=== PATIENT | male | born 1970 | race Caucasian/White ===

== ENCOUNTER 2017-04-17 06:50 | Day surgery (SDC) | payer OTHER ==
[2017-04-17] VITALS (10 sets, daily range): BP systolic 108–137; BP diastolic 59–78; PULSE 78–92; RESP 15–22; Ht 175.3 cm; Wt 67.0 kg
[~2017-04-17] VITALS: Ht 175.3 cm; Wt 67.0 kg
[~2017-04-17 06:50] MED LIST: ATROPINE 1 MG/10 ML SYRINGE IV PRN; CEFAZOLIN 2 GM/50 ML (PMX) 50 ML IVPB SCH; DIPHENHYDRAMINE 50 MG INJ IV PRN; EPHEDrine SULFATE 50 MG/5 ML SYG IV PRN; FENTAnyl 50 MCG/ML VIAL IV PRN; HYDROmorphONE (0.2 MG/ML) 10ML SYG IV PRN; LABETALOL HCL 20MG INJ IV PRN; MEPERIDINE 25 MG INJ IV PRN; MIDAZOLAM 1 MG/ML 2 ML INJ IV PRN; ONDANSETRON 4 MG INJ IV PRN; OXYCODONE/ACETAMINOPHEN (5/325) TAB PO PRN; SOD CHLORIDE 0.9% 1,000 ML IV SCH; hydrALAzine 20 MG INJ IV PRN; morphine (1 MG/ML) 10ML SYRINGE IV PRN
[2017-04-17] MEDS ORDERED: ROCURONIUM 50 MG INJ ONE (08:18)
[2017-04-17] MEDS ORDERED: MIDAZOLAM 1 MG/ML 2 ML INJ ONE (08:18)
[2017-04-17] MEDS ORDERED: GLYCOPYRROLATE 0.4 MG INJ ONE (08:18)
[2017-04-17] MEDS ORDERED: NEOSTIGMINE 3 MG/3 ML SYRINGE ONE (08:18)
[2017-04-17] MEDS ORDERED: LIDOCAINE 2% (SDV) 5 ML INJ ONE (08:18)
[2017-04-17] MEDS ORDERED: FENTAnyl 50 MCG/ML VIAL ONE (08:18)
[2017-04-17] MEDS ORDERED: PROPOFOL 20 ML ONE (08:18)
[2017-04-17] MEDS ORDERED: CEFAZOLIN 1 GM INJ ONE (08:22)
[2017-04-17] MEDS ORDERED: POLYMYXIN/BACITRACIN 1L IRRIG ONE (08:22)
[2017-04-17] MEDS ORDERED: SUCCINYLCHOLINE CHLORIDE 100 MG/5 ML SYG IV ONE (08:22)
[2017-04-17] MEDS ORDERED: BUPIVACAINE 0.25% (MPF) 30 ML INJ ONE (08:22)
[2017-04-17 08:25] LABS: BASOPHILS % 0.3 % (0.0-2.0); EOSINOPHILS # 0.2 10^3/ul (0.0-0.5); HEMATOCRIT 38.6 % (42.0-52.0); HEMOGLOBIN 12.7 g/dl (14.0-18.0); LYMPHOCYTES # 1.3 10^3/ul (0.8-2.9); LYMPHOCYTES % 36.6 % (15.0-51.0); MEAN CORPUSCULAR HEMOGLOBIN 27.3 pg (29.0-33.0); MEAN CORPUSCULAR HGB CONC 32.9 g/dl (32.0-37.0); MEAN PLATELET VOLUME 9.3 fl (7.4-10.4); MONOCYTE # 0.4 10^3/ul (0.3-0.9); MONOCYTES % 11.7 % (0.0-11.0); NEUTROPHIL # 1.7 10^3/ul (1.6-7.5); NEUTROPHILS % 46.1 % (39.0-77.0); PLATELET COUNT 192 10^3/UL (140-415); RED BLOOD COUNT 4.65 10^6/ul (4.70-6.10); RED CELL DISTRIBUTION WIDTH 13.2 % (11.5-14.5); WHITE BLOOD COUNT 3.6 10^3/ul (4.8-10.8)
[2017-04-17 08:32] LABS: INR 1.21; PARTIAL THROMBOPLASTIN TIME 29.7 Sec (25.0-35.0); PROTIME 15.4 Sec (12.2-14.2); PT RATIO 1.2
[2017-04-17 08:35] LABS: ALBUMIN 3.7 g/dl (3.3-4.9); ALBUMIN/GLOBULIN RATIO 1.12; BILIRUBIN,INDIRECT 0.1 mg/dl (0-1.1); BILIRUBIN,TOTAL 0.1 mg/dl (0.2-1.3)
[2017-04-17] MEDS ORDERED: DEXAMETHASONE 4 MG/ML 1 ML INJ ONE (08:35)
[2017-04-17] MEDS ORDERED: ONDANSETRON 4 MG INJ ONE (08:35)
[2017-04-17 08:41] LABS: HOLD TRANSMISSIONS 1
[2017-04-17 08:42] LABS: CALCIUM 9.1 mg/dl (8.4-10.2); CREATININE 0.82 mg/dl (0.61-1.24); POTASSIUM 3.9 mmol/L (3.5-5.1)
--- NOTE | 2017-04-17 09:38 | SIPON ---
Date/Time of Note Date/Time of Note DATE: 04/17/17 TIME: 09:37 Operative Report Preoperative Diagnosis right inguinal hernia Postoperative Diagnosis same Operation/Procedure Performed 1. open right inguinal hernia repair with medium ultrapro hernia system mesh 2. 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
[2017-04-17] MEDS ORDERED: HYDROCODONE/APAP (5/325) TAB PO ONE (10:00)
--- NOTE | 2017-04-17 14:04 | OPR ---
DATE OF OPERATION: 04/17/2017 INDICATION: This is a 46-year-old male with a right inguinal hernia. He requests surgical repair. Risks, alternatives, benefits, and personnel were discussed with the patient. The patient expresse d understanding and consents to the operation. PREOPERATIVE DIAGNOSIS: Right inguinal hernia. POSTOPERATIVE DIAGNOSIS: Right inguinal hernia. OPERATION PERFORMED: 1. Open right inguinal hernia repair with medium size Ultrapro hernia system mesh. 2. Therapeutic subcutaneous local anesthesia injected. SURGEON: Lily. SPECIMENS: None. COMPLICATIONS: None. ANESTHESIA: General. ESTIMATED BLOOD LOSS: Minimal. DESCRIPTION OF PROCEDURE: The patient was taken to the OR and prepped and draped in the usual steri le fashion. Surgical timeout was performed. IV antibiotics were given. Right inguinal oblique inc ision is made with a 10 blade. Dissection cautery was carried down to the external oblique fascia. External oblique fascia is opened with a 15 blade. This incision is extended medial inferiorly and lateral superiorly with Metzenbaum scissors. Cord structures were encircled with a Austin drain. Indirect hernia was identified and reduced manually. The disk portion of the UltraPro hernia syste m mesh was used to reinforce the indirect space. This was secured in place with running 0 Prolene f rom the pubic tubercle along shelving edge of the inguinal ligament. The disk was then secured to t he internal oblique with interrupted 3-0 Vicryl. Onlay mesh is secured in a similar fashion with a running 0 Prolene from the pubic tubercle along the shelving edge of the inguinal ligament. Straps are recreated and approximated around the cord structures to recreate the inguinal ring with interru pted 0 Prolene. Onlay mesh was secured to the internal oblique with interrupted 3-0 Vicryl. Slate Picker al oblique fascia was closed with running 3-0 Vicryl. Jared's fascia was closed with interrupted 3 -0 Vicryl. Skin was closed using skin toña. Therapeutic subcutaneous local anesthesia was injec darling throughout the incision site. Dressings were applied. Dictated By: KATIE VIEIRA/YARIEL Conf#: [id number] DID#: [id number]
== END 2017-04-17 11:01 | disposition home or self-care (01) ==
LOC: SDS 06:50
PROVIDERS: ATTEND Surgery
DX: K40.90 Unilateral inguinal hernia, without obstruction or gangrene, not specified as recurrent (principal)
CPT/HCPCS: 49505; 80053; 85025; 85610; 85730; C1781; J0690; J1100; J2250; J2405; J3010; Z7512; Z7610; J2710

== ENCOUNTER 2017-12-10 12:21 | Day surgery (SDC) | END 2017-12-10 15:05 | disposition home or self-care (01) ==

== ENCOUNTER → 2018-02-04 | Day surgery (SDC) | END | disposition home or self-care (01) ==